=== PATIENT | female | born 1945 | race Caucasian/White ===

== ENCOUNTER 2020-08-30 11:47 | Inpatient (IN) ==
[2020-08-30] MEDS ORDERED: IOPAMIDOL 100 ML BOTTLE IV ONE (11:48)
[2020-08-30] MEDS ORDERED: 0.9 % SODIUM CHLORIDE 1,000 ML IV ONE (12:13)
[2020-08-30 12:47] LABS: POC Creatinine 0.7 mg/dL (0.6-1.2)
--- NOTE | 2020-08-30 12:55 | Emergency Department Note ---
Neuro HPI General Chief Complaint: Neuro Symptoms/Deficit Stated Complaint: slured speach Time Seen by Provider: 08/30/20 12:13 Source: family Mode of arrival: ambulatory Limitations: no limitations History of Present Illness HPI Narrative: Narrative: Patient is a 75-year-old female that comes into the emergency department today accompanied with her daughter. Apparently on , August 28, 2020 patient had got up at night to talk to the daughter and reports that she was not making sense with her words and had some slurred speech. Patient did not want to go to the emergency department, and went to bed that night. The next morning her speech had improved and she was reporting that she felt very anxious over the last couple of days, but has otherwise been feeling normal. She has not had any fevers, chills, vision changes, sore throat, rhinitis, nasal congestion, chest pain, palpitations, cough, shortness of breath, difficulty breathing, abdominal pain, nausea, vomiting, bleeding, bruising, melena, or hematochezia. Patient has had a slight headache at the center of her head that occurred for short period of time on evening, but has now resolved. She denies having any weakness, but reports that she feels slightly off balance when she ambulates. She denies any numbness or tingling. She has not had any falls or injuries. She has not had any recent illness. She denies having any past CVA, TIA,, neurological history, or cardiac history. She has not had any new medications. She reports she occasionally will take lorazepam for anxiety, and she is taking tamoxifen for left breast cancer. Related Data Home Medications Medication Instructions Recorded Confirmed tamoxifen 10 mg tablet 20 mg PO QDAY 08/28/20 08/30/20 acyclovir 400 mg PO DAILYP PRN 08/30/20 08/30/20 lorazepam 0.5 - 1 mg PO BID PRN 08/30/20 08/30/20 lorazepam 2.5 mg PO DAILY 08/30/20 08/30/20 Allergies Allergy/AdvReac Type Severity Reaction Status Date / Time exemestane Allergy Unknown Other Verified 08/28/20 18:58 ibuprofen [From Advil] Allergy Unknown Swelling Verified 08/28/20 18:58 of Lip/Tongue/Throat Penicillins Allergy Unknown Hives Verified 08/28/20 18:58 pseudoephedrine Allergy Unknown Swelling Verified 08/28/20 18:58 [From Sudafed] cefdinir [From Omnicef] Allergy Other Verified 08/28/20 18:58 chlorpheniramine Allergy Itching Verified 08/28/20 18:58 [From Tussionex] hydrocodone [From Tussionex] Allergy Itching Verified 08/28/20 18:58 doxycycline AdvReac Intermediate Abdominal Verified 08/28/20 18:58 Pain adhesive Tape Allergy Unknown Unknown Uncoded 08/28/20 18:58 Codeine Sulfate Allergy Unknown Nausea Uncoded 08/28/20 18:58 SULFA (SULFONAMIDES) Allergy Unknown Hives Uncoded 08/28/20 18:58 Review of Systems ROS ROS Narrative: Narrative: All systems ED: reviewed and negative except as stated. [facility] Narrative Patient History Narrative: Narrative: Medical/Surgical/Family History All Active Problems (Updated 08/30/20 @ 19:31 by ERA Barron) Cerebrovascular accident (Acute) Stress (Acute) Anxiety (Acute) Bee sting (Acute) Stress reaction (Acute) Acute dyspnea (Acute) Left shoulder pain (Acute) Breast cancer (Acute) Pain in both knees (Chronic) Degenerative joint disease of right knee (Chronic) Contusion of right orbit (Acute) Knee pain (Chronic) Right foot pain (Acute) Angioedema (Chronic) Encounter for Health Maintenance Examination in Adult (Chronic) History of colonoscopy (Chronic 01/26/10) History of breast surgery (Chronic) Anxiety (Chronic 11/01/12) Cyst (Chronic) Glucose intolerance (impaired glucose tolerance) (Chronic 11/01/12) Herpes simplex (Chronic) Pure hypercholesterolemia (Chronic 11/01/12) Osteoporosis screening (Chronic) Vitamin D deficiency (Chronic) Medical History Angioedema sec advil--avoid NSAIDS Anxiety (11/01/12) Anxiety Contusion of right orbit Cyst Previous derm review with Dr. Thompson. 2010--Lesion removed off the left lower lateral back which was a foreign body with a cyst. Degenerative joint disease of right knee 05/07/2015-[facility] Encounter for Health Maintenance Examination in Adult Glucose intolerance (impaired glucose tolerance) (11/01/12) Herpes simplex H/O herpes labialis--Acyclovir prn. Knee pain prob djd Osteoporosis screening 11/03/12 Bone Density--Spine T-score -0.7; Hip T-score -1.4 Pain in both knees Pure hypercholesterolemia (11/01/12) Right foot pain prob plantar fasciitis Stress Vitamin D deficiency Vitamin D deficiency 12/2009, corrected. Surgical History History of breast surgery Breast cyst excised a number of years ago. History of colonoscopy (01/26/10) Normal. Rescreen in 10 years Family History Grandmother(maternal) No problems noted. Mother Type 2 diabetes mellitus mother--diabetes at an older age Father Malignant neoplasm of lung father-Lung CA and probable asbestos Grandfather(paternal) Family history of malignant neoplasm had cancer of uncertain type Social History Smoking Status: Former smoker Alcohol Intake Frequency: does not drink Substance Use: does not use Exam Narrative Narrative: Narrative: General Limitations: no limitations General appearance: Present alert and in no apparent distress Head Head: Present atraumatic, normocephalic and normal inspection Eye Eye: Present normal appearance, PERRL, EOMI and visual medina intact; Absent scleral icterus, conjunctival injection, miosis (constriction) and mydriasis (dilation) ENT ENT: Present normal oropharynx, mucous membranes moist and TM's normal bila terally; Absent nasal congestion Neck Neck: Present normal inspection, full ROM and trachea midline; Absent tenderness, meningismus, lymphadenopathy and thyromegaly Chest Chest: Present symmetric chest wall rise Respiratory Respiratory: Present normal lung sounds bilaterally; Absent respiratory distress, rales/crackles, wheezes, stridor, accessory muscle use and prolonged expiratory phase Cardiovascular Cardiovascular: Present regular rate and normal rhythm; Absent systolic murmur and diastolic murmur Extremities Extremities: Present normal inspection, full ROM and normal capillary refill; Absent tenderness and cyanosis Back Back: Present normal inspection and full ROM; Absent spinous process tenderness Neurological Neurological: Present alert, oriented X3 and CN II-XII intact Expanded Neurological Patient oriented to: Present person, place and time Speech: Present fluid speech CRANIAL NERVES: EOM function (II, III, IV, ): Normal, facial sensation (V): Normal, facial palsy (VII): Normal, gag reflex (IX): Normal, spinal accessory function (XI): Normal and tongue deviation (XII): Normal CEREBELLAR FUNCTION: finger to nose: Normal and heel to dewey: Normal Motor strength - LUE: 5/5 Motor strength - RUE: 5/5 Motor strength - LLE: 5/5 Motor strength - RLE: 5/5 UPPER MOTOR NEURON EXAM: bryant neglect: Normal SENSORY EXAM UPPER EXTREMITY: Normal: light touch SENSORY EXAM LOWER EXTREMITY: Normal: light touch Coma Scale Eye Opening: Spontaneous Coma Scale Motor Response: Obeys Commands Coma Scale Verbal Response: Oriented Coma Scale Total: 15 Psychiatric Psychiatric: Present normal affect and normal mood Skin Skin: Present warm (WNL), dry and normal color Course Vital Signs Vital signs: Vital Signs Temperature 98 F 08/30/20 11:47 Pulse Rate 85 08/30/20 11:47 Respiratory Rate 16 08/30/20 11:47 Blood Pressure 150/73 08/30/20 11:47 Pulse Oximetry (%) 97 08/30/20 11:47 Temperature 98 F 08/30/20 11:47 Pulse Rate 72 08/30/20 18:36 Respiratory Rate 22 08/30/20 18:36 Blood Pressure 110/69 08/30/20 18:36 Pulse Oximetry (%) 97 08/30/20 18:36 MDM MDM Narrative Medical decision making narrative: Narrative: Patient is a 75-year-old female with onset of neurological changes approximately 40 hours ago, and apparently symptoms are resolving and almost completely resolved. Her neurological examination today is rather unremarkable. Proceed with a head CT without intravenous contrast that the preliminary report was read by direct radiology with impression of lacunar infarct basal ganglia on the left which is old. No evidence of acute intracranial abnormality. Given that patient had symptoms a follow-up was done with CTA head and neck today. The head and neck CTA did show additional finding in the left occipital lobe, and radiologist today had called me with results and recommended an MRI for further evaluation that could help with the diagnosis. The brain MRI was completed, and radiologist, Dr. Vásquez had called me with the results indicating that there is an acute nonhemorrhagic infarct that is moderate size in the left occipital/posterior and temporal/parietal lobe area. He also reports that there is another small acute infarct at the posterior left basal ganglia. Radiologist suggested that infarct is between 1 hour to 1 week old. Patient symptoms had started approximately 40 hours ago. Patient's NIH sore today of 2. Was able to consult with [facility] neurology, Dr. Lr today, and he recommends patient to have further work-up in regards to possible cardiac embolic stroke. Recommended echocardiogram, telemetry, and perhaps admitting patient for 24-hour monitoring. He recommended to check hemoglobin A1c, lipid panel, and start patient on Plavix and aspirin. Patient is out of the window for any other intervention at this time and according to neurology, and patient's symptoms have started to resolve. Was able to also discuss this case today with my supervising physician, Dr. Multani, and was able to consult with hospitalist, Dr. Tong. Dr. Tong will plan on admitting patient to [facility] for observation at [facility]. Patient did receive aspirin and Plavix in the emergency department today. She had also received a liter normal saline, and 1 mg of lorazepam prior to the MRI as she was anxious for the MRI. Lab Data Lab results reviewed: Yes I reviewed the patient's lab results. Result diagrams: 08/30/20 12:20 08/30/20 12:20 Labs: Lab Results 08/30/20 08/30/20 08/30/20 Range/Units 12:20 12:20 12:20 WBC 7.7 (4.5-11.0) K/mcL RBC 4.07 (4.00-5.20) M/mcL Hgb 12.9 (12.0-15.0) g/dL Hct 40.1 (36.0-48.0) % MCV 98.5 (80.0-100.0) fL MCH 31.7 (26.0-34.0) pg MCHC 32.2 (31.0-36.0) g/dL RDW 13.6 (11.5-14.5) % Plt Count 216 (140-440) K/mcL MPV 11.5 H (7.4-10.4) fL Neut % (Auto) 77.2 (38.0-78.0) % Lymph % (Auto) 14.0 L (15.0-49.0) % [place] % (Auto) 6.4 (1.0-12.0) % Eos % (Auto) 1.8 (0.0-7.0) % Baso % (Auto) 0.6 (0.0-2.0) % Lymph # (Auto) 1.08 L (1.50-4.80) K/mcL [place] # (Auto) 0.49 (0.10-0.90) K/mcL Eos # (Auto) 0.14 (0.00-0.70) K/mcL Baso # (Auto) 0.05 (0.00-0.20) K/mcL Absolute Neutrophils 5.94 (1.80-8.00) K/mcL Sodium 138 (133-145) mmol/L Potassium 4.1 (3.3-5.1) mmol/L Chloride 103 (96-108) mmol/L Carbon Dioxide 23 (22-30) mmol/L Anion Gap 12.0 (8.0-16.0) BUN 12 (8-23) mg/dL Creatinine 0.8 (0.6-1.1) mg/dL POC Creatinine 0.7 (0.6-1.2) mg/dL GFR Calculation 73 Glucose 161 H (70-105) mg/dL Calcium 8.8 (8.6-10.4) mg/dL Total Bilirubin 0.3 (0.1-1.0) mg/dL AST 19 (<32) U/L ALT 16 (<40) U/L Alkaline Phosphatase 69 (39-117) U/L Ammonia (11-51) umol/L Total Protein 6.4 (5.9-8.4) gm/dL Albumin 3.8 (3.2-5.2) gm/dL Globulin 2.6 (2.2-3.7) gm/dL Albumin/Globulin Ratio 1.5 (1.0-2.3) Urine Opiates Screen Ur Opiates Confirm Ur Oxycodone Screen Urine Methadone Screen Ur Methadone Confirm Ur Barbiturates Screen Ur Barbiturate Confirm Ur Phencyclidine Scrn Urine PCP Confirm Ur Amphetamines Screen U Amphetamines Confirm U Benzodiazepines Scrn U Benzodiazepine Confm Urine Cocaine Screen Urine Cocaine Confirm U Cannabinoids Confirm U Marijuana (THC) Screen Ethyl Alcohol (<0.010) gm/dL 08/30/20 08/30/20 08/30/20 Range/Units 12:20 13:01 13:20 WBC (4.5-11.0) K/mcL RBC (4.00-5.20) M/mcL Hgb (12.0-15.0) g/dL Hct (36.0-48.0) % MCV (80.0-100.0) fL MCH (26.0-34.0) pg MCHC (31.0-36.0) g/dL RDW (11.5-14.5) % Plt Count (140-440) K/mcL MPV (7.4-10.4) fL Neut % (Auto) (38.0-78.0) % Lymph % (Auto) (15.0-49.0) % [place] % (Auto) (1.0-12.0) % Eos % (Auto) (0.0-7.0) % Baso % (Auto) (0.0-2.0) % Lymph # (Auto) (1.50-4.80) K/mcL [place] # (Auto) (0.10-0.90) K/mcL Eos # (Auto) (0.00-0.70) K/mcL Baso # (Auto) (0.00-0.20) K/mcL Absolute Neutrophils (1.80-8.00) K/mcL Sodium (133-145) mmol/L Potassium (3.3-5.1) mmol/L Chloride (96-108) mmol/L Carbon Dioxide (22-30) mmol/L Anion Gap (8.0-16.0) BUN (8-23) mg/dL Creatinine (0.6-1.1) mg/dL POC Creatinine (0.6-1.2) mg/dL GFR Calculation Glucose (70-105) mg/dL Calcium (8.6-10.4) mg/dL Total Bilirubin (0.1-1.0) mg/dL AST (<32) U/L ALT (<40) U/L Alkaline Phosphatase (39-117) U/L Ammonia 38 (11-51) umol/L Total Protein (5.9-8.4) gm/dL Albumin (3.2-5.2) gm/dL Globulin (2.2-3.7) gm/dL Albumin/Globulin Ratio (1.0-2.3) Urine Opiates Screen None detected Ur Opiates Confirm TNP Ur Oxycodone Screen None detected Urine Methadone Screen None detected Ur Methadone Confirm TNP Ur Barbiturates Screen None detected Ur Barbiturate Confirm TNP Ur Phencyclidine Scrn None detected Urine PCP Confirm TNP Ur Amphetamines Screen None detected U Amphetamines Confirm TNP U Benzodiazepines Scrn None detected U Benzodiazepine Confm TNP Urine Cocaine Screen None detected Urine Cocaine Confirm TNP U Cannabinoids Confirm TNP U Marijuana (THC) Screen None detected Ethyl Alcohol < 0.010 (<0.010) gm/dL ED POC Tests ED POC Tests: AI - SARS Antigen Negative Radiology Data Radiology results reviewed: Yes I reviewed the patient's radiology results. Radiology results narrative: Ordering Physician: Ty iVvas Date of Service: 08/30/20 Procedure(s): MR head/brain stroke Accession Number(s): [id number] CLINICAL INFORMATION: Code stroke altered mental status COMPARISON: Head CT 08/30/2020 TECHNIQUE: Sagittal T1, axial T1-T2 FLAIR diffusion ADC images were obtained through the brain. FINDINGS: There are multiple (approximately 10) small cortical and subcortical acute lacunar infarcts in the left occipital lobe. They range up to 8 mm. Other acute lacunar infarcts noted in the left lateral hemisphere: 6 mm in the posterior left lentiform nucleus, 4-5 punctate lacunar infarcts in the right temporal white matter and a 6 mm lesion in the right perihippocampal region. All of these lesions exhibit restricted diffusion, are isointense on T1 and T2 without evidence of hemorrhage. Increased signal within the M1 M2 and M2 temporal branch of the left middle cerebral artery only represent acute thrombus. The ventricles, sulci, fissures and cisterns are symmetrically enlarged patible with mild underlying atrophy. Scattered chronic ischemic foci in the cerebral white matter are typical for age IMPRESSION: 1. Multiple acute cortical and subcortical lacunar infarcts within the left occipital lobe, the posterior lentiform nucleus with a few punctate foci scattered within the left temporal white matter including the parahippocampus. 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 It is suspected multiple emboli, originating from the left internal carotid artery, have scattered within the left occipital and temporal lobes via the left middle and posterior cerebral arteries. No evidence of hemorrhage 2. Mild atrophy and scattered chronic ischemic foci in the cerebral white matter typical for age. Interpreted and Authenticated by: Kuldip Salazar 08/30/20 EKG Data EKG #1: EKG attestation: Yes I reviewed and interpreted this EKG. and Yes There are no EKG findings of acute coronary syndrome EKG shows normal: sinus rhythm Rate: normal Discharge Plan Patient/Caregiver Discharge Instructions Pt seen by COMPRESSOR OPERATOR/PA only: No Clinical Impression: Cerebrovascular accident Patient Disposition: Xfer As Inpt ([facility]) Discharge Date/Time: 08/30/20 19:22
[2020-08-30 13:01] LABS: Basophils # (Auto) 0.05 K/mcL (0.00-0.20); Basophils % (Auto) 0.6 % (0.0-2.0); Eosinophils # (Auto) 0.14 K/mcL (0.00-0.70); Eosinophils % (Auto) 1.8 % (0.0-7.0); Hematocrit 40.1 % (36.0-48.0); Hemoglobin 12.9 g/dL (12.0-15.0); Lymphocytes # (Auto) 1.08 K/mcL (1.50-4.80); Mean Cell Volume 98.5 fL (80.0-100.0); Mean Corpuscular HGB Conc 32.2 g/dL (31.0-36.0); Mean Platelet Volume 11.5 fL (7.4-10.4); Monocytes # (Auto) 0.49 K/mcL (0.10-0.90); Monocytes % (Auto) 6.4 % (1.0-12.0); Neutrophils % (Auto) 77.2 % (38.0-78.0); Platelet Count 216 K/mcL (140-440); RBC 4.07 M/mcL (4.00-5.20); Red Cell Distribution Width 13.6 % (11.5-14.5); WBC 7.7 K/mcL (4.5-11.0)
[2020-08-30 13:24] LABS: ALT/SGPT 16 U/L (<40); AST/SGOT 19 U/L (<32); Albumin 3.8 gm/dL (3.2-5.2); Albumin/Globulin Ratio 1.5 (1.0-2.3); Alkaline Phosphatase 69 U/L (39-117); Bilirubin,Total 0.3 mg/dL (0.1-1.0); Blood Urea Nitrogen 12 mg/dL (8-23); Calcium 8.8 mg/dL (8.6-10.4); Carbon Dioxide 23 mmol/L (22-30); Chloride 103 mmol/L (96-108); Globulin 2.6 gm/dL (2.2-3.7); Glomerular Filtration Rate 73; Glucose 161 mg/dL (70-105)
[2020-08-30 13:25] LABS: Alcohol, Blood < 10.0 mg/dL; Alcohol,Blood < 0.010 gm/dL (<0.010)
[2020-08-30 13:44] LABS: Amphetamine Screen,Urine None detected; Barbiturate Screen,Urine None detected; Benzodiazepines Screen,Urine None detected; Cannabinoid Screen,Urine None detected; Cocaine Screen,Urine None detected; Opiate Screen,Urine None detected; Oxycodone, Urine Screen None detected; Phencyclidine Screen,Urine None detected
[2020-08-30] MEDS ORDERED: LORazepam 2 MG/ML VIAL IV ONE (13:45)
--- NOTE | 2020-08-30 16:07 | Internal Med History&Physical ---
HPI History of Present Illness Patient information: Note initiated : 08/30/20 at 4:06 pm Service Date, if different from initiated Date: [] Patient: Emily Castillo a 75 y/o F admitted on for slurred speech. Chief Complaint: [] History of present illness: Ms. Castillo is a 75 year old F Who presents to the ED with her daughter because of garbled speech. night daughter said her mom had garbled speech and was following. Mom refused to go to the emergency room at that time. Symptoms seem to improve the next 24 hours. However still mildly present in today they were still mildly present so her daughter brought her into the ED. Her daughter describes speech that would fall under expressive aphasia symptoms. She has no history of stroke. She had high blood pressure when she was seen at beginning of the year in the ED but she has not followed up on her blood pressure. Does not take blood pressure medications. Does have anxiety and says she has had more anxiety of the past couple months. Also note she is on tamoxifen for breast cancer. Work-up in the ED revealed stroke. ER notes he spoke with the radiologist left occipital parietal and temporal parietal as well as a small left basal ganglia. CTA head and neck were done and will have the results but it sounds like there was no thrombus noted but there was some stenosis per the physician licensed nursing assistant who did talk with neurology. Neurologist just recommended aspirin Plavix lipids panel with statin echocardiogram to rule out cardioembolic source. EKG in the ED is sinus at this time. Review of Systems: Positives as above. Denies headache/fever/chills/nausea/vomiting/chest or abdominal pain/cough/dyspnea/diarrhea. Remaining 10 point review of system reviewed negative PFSH PFSH All Active Problems Stress (Acute) Anxiety (Acute) Bee sting (Acute) Stress reaction (Acute) Acute dyspnea (Acute) Left shoulder pain (Acute) Breast cancer (Acute) Pain in both knees (Chronic) Degenerative joint disease of right knee (Chronic) Contusion of right orbit (Acute) Knee pain (Chronic) Right foot pain (Acute) Angioedema (Chronic) Encounter for Health Maintenance Examination in Adult (Chronic) History of colonoscopy (Chronic 01/26/10) History of breast surgery (Chronic) Anxiety (Chronic 11/01/12) Cyst (Chronic) Glucose intolerance (impaired glucose tolerance) (Chronic 11/01/12) Herpes simplex (Chronic) Pure hypercholesterolemia (Chronic 11/01/12) Osteoporosis screening (Chronic) Vitamin D deficiency (Chronic) Medical History Angioedema sec advil--avoid NSAIDS Anxiety (11/01/12) Anxiety Contusion of right orbit Cyst Previous derm review with Dr. Thompson. 2010--Lesion removed off the left lower lateral back which was a foreign body with a cyst. Degenerative joint disease of right knee 05/07/2015-[facility] Encounter for Health Maintenance Examination in Adult Glucose intolerance (impaired glucose tolerance) (11/01/12) Herpes simplex H/O herpes labialis--Acyclovir prn. Knee pain prob djd Osteoporosis screening 11/03/12 Bone Density--Spine T-score -0.7; Hip T-score -1.4 Pain in both knees Pure hypercholesterolemia (11/01/12) Right foot pain prob plantar fasciitis Stress Vitamin D deficiency Vitamin D deficiency 12/2009, corrected. Surgical History History of breast surgery Breast cyst excised a number of years ago. History of colonoscopy (01/26/10) Normal. Rescreen in 10 years Family History Grandmother(maternal) No problems noted. Mother Type 2 diabetes mellitus mother--diabetes at an older age Father Malignant neoplasm of lung father-Lung CA and probable asbestos Grandfather(paternal) Family history of malignant neoplasm had cancer of uncertain type Social History household members: alone housing: house lives independently: Yes marital status: occupational status: retired occupation: Teacher alcohol intake frequency: does not drink substance use type: does not use MEDS/ALLERGIES Home Medications and Allergies Home Medications Medication Instructions Recorded Confirmed Type tamoxifen 10 mg tablet 20 mg PO QDAY 08/28/20 08/30/20 History acyclovir 400 mg PO DAILYP PRN 08/30/20 08/30/20 History lorazepam 0.5 - 1 mg PO BID PRN 08/30/20 08/30/20 History lorazepam 2.5 mg PO DAILY 08/30/20 08/30/20 History Allergies Allergy/AdvReac Type Severity Reaction Status Date / Time exemestane Allergy Unknown Other Verified 08/28/20 18:58 ibuprofen [From Advil] Allergy Unknown Swelling Verified 08/28/20 18:58 of Lip/Tongue/Throat Penicillins Allergy Unknown Hives Verified 08/28/20 18:58 pseudoephedrine Allergy Unknown Swelling Verified 08/28/20 18:58 [From Sudafed] cefdinir [From Omnicef] Allergy Other Verified 08/28/20 18:58 chlorpheniramine Allergy Itching Verified 08/28/20 18:58 [From Tussionex] hydrocodone [From Tussionex] Allergy Itching Verified 08/28/20 18:58 doxycycline AdvReac Intermediate Abdominal Verified 08/28/20 18:58 Pain adhesive Tape Allergy Unknown Unknown Uncoded 08/28/20 18:58 Codeine Sulfate Allergy Unknown Nausea Uncoded 08/28/20 18:58 SULFA (SULFONAMIDES) Allergy Unknown Hives Uncoded 08/28/20 18:58 EXAM Constitutional Vitals: Temp Pulse Resp BP Pulse Ox 98 F 73 13 148/68 97 08/30/20 11:47 08/30/20 15:22 08/30/20 15:22 08/30/20 15:22 08/30/20 15:22 Exam: General: Alert, Awake, No acute Distress Eyes/N/T: EOMI, PERRL, Head/Neck: neck supple, normocephalic atraumatic CV: RRR, No murmurs, normal s1/s2 Pulm: Clear b/l, no wheezing/rhonchi/rales Abd: soft, nontender, +BS x4 Ext: no clubbing/cyanosis/edema Neuro: Alert, no focal deficits, moves all extremities, CN 2-12 grossly intact, symmetrical strength b/l upper/lower, sensations intact b/l upper/lower Skin: warm/dry DATA Data Completed and Pending Labs: Labs from last 24 hours 08/30/20 08/30/20 08/30/20 13:20 13:01 12:20 WBC RBC Hgb Hct MCV MCH MCHC RDW Plt Count MPV Neut % (Auto) Lymph % (Auto) [place] % (Auto) Eos % (Auto) Baso % (Auto) Lymph # (Auto) [place] # (Auto) Eos # (Auto) Baso # (Auto) Absolute Neutrophils Sodium Potassium Chloride Carbon Dioxide Anion Gap BUN Creatinine POC Creatinine GFR Calculation Glucose Calcium Total Bilirubin AST ALT Alkaline Phosphatase Ammonia 38 Total Protein Albumin Globulin Albumin/Globulin Ratio Urine Opiates Screen None detected Ur Opiates Confirm TNP Ur Oxycodone Screen None detected Urine Methadone Screen None detected Ur Methadone Confirm TNP Ur Barbiturates Screen None detected Ur Barbiturate Confirm TNP Ur Phencyclidine Scrn None detected Urine PCP Confirm TNP Ur Amphetamines Screen None detected U Amphetamines Confirm TNP U Benzodiazepines Scrn None detected U Benzodiazepine Confm TNP Urine Cocaine Screen None detected Urine Cocaine Confirm TNP U Cannabinoids Confirm TNP U Marijuana (THC) Screen None detected Ethyl Alcohol < 0.010 08/30/20 08/30/20 08/30/20 12:20 12:20 12:20 WBC 7.7 RBC 4.07 Hgb 12.9 Hct 40.1 MCV 98.5 MCH 31.7 MCHC 32.2 RDW 13.6 Plt Count 216 MPV 11.5 H Neut % (Auto) 77.2 Lymph % (Auto) 14.0 L [place] % (Auto) 6.4 Eos % (Auto) 1.8 Baso % (Auto) 0.6 Lymph # (Auto) 1.08 L [place] # (Auto) 0.49 Eos # (Auto) 0.14 Baso # (Auto) 0.05 Absolute Neutrophils 5.94 Sodium 138 Potassium 4.1 Chloride 103 Carbon Dioxide 23 Anion Gap 12.0 BUN 12 Creatinine 0.8 POC Creatinine 0.7 GFR Calculation 73 Glucose 161 H Calcium 8.8 Total Bilirubin 0.3 AST 19 ALT 16 Alkaline Phosphatase 69 Ammonia Total Protein 6.4 Albumin 3.8 Globulin 2.6 Albumin/Globulin Ratio 1.5 Urine Opiates Screen Ur Opiates Confirm Ur Oxycodone Screen Urine Methadone Screen Ur Methadone Confirm Ur Barbiturates Screen Ur Barbiturate Confirm Ur Phencyclidine Scrn Urine PCP Confirm Ur Amphetamines Screen U Amphetamines Confirm U Benzodiazepines Scrn U Benzodiazepine Confm Urine Cocaine Screen Urine Cocaine Confirm U Cannabinoids Confirm U Marijuana (THC) Screen Ethyl Alcohol A/P Narrative A/P Narrative: A: *acute CVA left hemisphere w/expressive aphasia: -of note pt on tamoxifen -Case discussed with stroke neurologist, medically and no need for transfer *HTN: possibly untreated htn based on pt history of elevations in past *Anxiety: *h/o Breast CA * P: -DAPT x21 days -statin -lipid panel -echo -tele -neurochecks -stop tamoxifen, f/u with oncology -pt/ot -ppx: lovenox full code Time Spent With Patient Time: Total time spent is greater than 50% in coordination of care (as documented) at patient's floor/unit and/or counseling patient:
[2020-08-30] MEDS ORDERED: CLOPIDOGREL 300 MG TABLET PO ONE (16:20)
--- NOTE | 2020-08-30 17:08 | XRay Report ---
CLINICAL INFORMATION: altered mental status COMPARISON: 08/08/2020 FINDINGS: Mild cardiomegaly is unchanged. Mediastinum and pulmonary vessels are normal. The lungs are clear. No effusions. Small eventration right diaphragm maintains long-term stability IMPRESSION: Mild stable cardiomegaly. Interpreted and Authenticated by: Kuldip Salazar 08/30/20
--- NOTE | 2020-08-30 17:24 | Cat Scan Report ---
CLINICAL INFORMATION: Acute mental status change COMPARISON: Head CT 10/24/2012 TECHNIQUE: 2.5 mm helical slices were obtained in the skull base to vertex. Following reconstruction, axial reformatted images were reviewed at bone and parenchymal windows. The exam was performed using radiation dose optimization techniques including, but not limited to, automated exposure control, adjustment of the mA and/or kV according to patient size and use of iterative reconstruction technique. FINDINGS: The ventricles, sulci, fissures, and cisterns are enlarged bowel mild atrophy. Slight asymmetric atrophy of the frontal temporal region. No change. There are no extra-axial fluid collection or mass appreciated. A 7 mm low-attenuation lesion in the posterior left lentiform nucleus is new from the previous study. It likely represents a focus of ischemia. There is no acute cerebral hemorrhage, mass effect or edema.. Bone windows show no osseous abnormality. IMPRESSION: Several low-attenuation lesion in the left lentiform nucleus not seen on the 2013 comparison study is likely in region of ischemia Mild atrophy with asymmetric atrophy of the frontal temporal region. No change Interpreted and Authenticated by: Kuldip Salazar 08/30/20
[2020-08-30] MEDS ORDERED: ASPIRIN 325 MG ENTERIC COATED TABLET PO ONE (17:52)
[2020-08-30] MEDS ORDERED: ASPIRIN 81 MG TAB.CHEW PO ONE (18:00)
--- NOTE | 2020-08-30 18:21 | Magnetic Resonance Report ---
CLINICAL INFORMATION: Code stroke altered mental status COMPARISON: Head CT 08/30/2020 TECHNIQUE: Sagittal T1, axial T1-T2 FLAIR diffusion ADC images were obtained through the brain. FINDINGS: There are multiple (approximately 10) small cortical and subcortical acute lacunar infarcts in the left occipital lobe. They range up to 8 mm. Other acute lacunar infarcts noted in the left lateral hemisphere: 6 mm in the posterior left lentiform nucleus, 4-5 punctate lacunar infarcts in the right temporal white matter and a 6 mm lesion in the right perihippocampal region. All of these lesions exhibit restricted diffusion, are isointense on T1 and T2 without evidence of hemorrhage. Increased signal within the M1 M2 and M2 temporal branch of the left middle cerebral artery only represent acute thrombus. The ventricles, sulci, fissures and cisterns are symmetrically enlarged patible with mild underlying atrophy. Scattered chronic ischemic foci in the cerebral white matter are typical for age IMPRESSION: 1. Multiple acute cortical and subcortical lacunar infarcts within the left occipital lobe, the posterior lentiform nucleus with a few punctate foci scattered within the left temporal white matter including the parahippocampus. 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 It is suspected multiple emboli, originating from the left internal carotid artery, have scattered within the left occipital and temporal lobes via the left middle and posterior cerebral arteries. No evidence of hemorrhage 2. Mild atrophy and scattered chronic ischemic foci in the cerebral white matter typical for age. Interpreted and Authenticated by: Kuldip Salazar 08/30/20
--- NOTE | 2020-08-30 18:55 | Cat Scan Report ---
CLINICAL INFORMATION: Code stroke COMPARISON: None. TECHNIQUE: 80 cc of Isovue-370 were injected intravenously, and using SmartPrep to maximize arterial opacification, 0.625 mm helical slices were obtained from the thoracic aortic arch through the [place] of [place]. Following reconstruction, 2.5mm sagittal, coronal and axial reformatted images were processed and reviewed at standard and bone algorithm/window. 3-D volume rendered, CPR and MIP images were processed using a [employer] work station.The exam was performed using radiation dose optimization techniques including, but not limited to, automated exposure control, adjustment of the mA and/or kV according to patient size and use of iterative reconstruction technique. FINDINGS: The thoracic aortic arch is normal diameter with diffuse intimal thickening. Bovine origin of the left common carotid arteries on the brachiocephalic artery is a normal variant. The brachiocephalic, both subclavian, both common, internal and external carotid arteries are widely patent. There is minimal fibrofatty calcific plaque in both carotid bifurcations, but no definite ulceration. The the right vertebral artery is dominant. The left vertebral artery is diminutive particularly the intracranial portion. No soft tissue abnormality IMPRESSION: Normal exam Interpreted and Authenticated by: Kuldip Salazar 08/30/20
--- NOTE | 2020-08-30 18:56 | EKG ---
Test Date: 2020-08-30 Pat Name: Emily Castillo Department: ED Room: Gender: Female [employer] Referee: : 1945 Requested By: Ty Vivas Order Number: [id number] Reading MD: Roel Ronquillo M.D. Measurements Intervals [place] Rate: 73 P: 27 MT: 167 QRS: 14 QRSD: 104 T: 20 QT: 382 QTc: 421 Interpretive Statements Sinus rhythm Since previous ECG of 08-08-2020, NSC NORMAL TRACING Electronically Signed On 08-30-2020 18:56:30 PDT by Roel Ronquillo M.D. /store/M0/[id number]
--- NOTE | 2020-08-30 19:07 | Cat Scan Report ---
CLINICAL INFORMATION: Code stroke COMPARISON: None. TECHNIQUE: 80 cc of Isovue-370 were injected intravenously , and using SmartPrep to maximize cerebral arterial opacification, 0.625 mm helical slices were obtained from the skull base through the cerebral vertex. Following reconstruction , sagittal, coronal and axial reformatted images were processed and reviewed at multiple windows and levels. 3D volume rendered and MIP images were acquired at a independent workstation. The exam was performed using radiation dose optimization techniques including, but not limited to, automated exposure control, adjustment of the mA and/or kV according to patient size and use of iterative reconstruction technique. FINDINGS: The intracranial right vertebral artery is normal. Intracranial left vertebral artery is diminutive. Basilar artery is also diminutive with diminutive P1 posterior cerebral artery segments. The P2 segments of the posterior vertebral arteries have embryonic origin from the supraclinoid ICAs. Intracranial internal carotid, both anterior and right middle cerebral arteries are well-opacified and normal in contour and caliber. There is a short segment thrombus within the proximal M1 segment of the left middle cerebral artery. In addition, the inferior division of the left M2 is attenuated and may be partially thrombosed. There is attenuation of the temporal and occipital branches to the left occipital lobe in the region of known acute infarct on MRI. There may be small amounts of her residual thrombus or embolus within these arteries. IMPRESSION: 1. Short segment occlusion M1 segment left middle cerebral artery. The inferior left M2 division is not opacified and presumably thrombosed. 2. Both posterior cerebral arteries (P2) have embryonic origins from the supraclinoid ICA. Distal occipital and temporal branches of the left posterior cerebral artery are attenuated compatible with minimal scattered thrombus or embolus. These branches supply the region of restricted diffusion on brain MRI. The patient may have a showering embolus originating from the left internal carotid artery Interpreted and Authenticated by: Kuldip Salazar 08/30/20
[2020-08-30] MEDS ORDERED: 0.9 % SODIUM CHLORIDE 1,000 ML IV SCH (19:17)
[2020-08-30] MEDS ORDERED: ACETAMINOPHEN 325 MG TABLET PO PRN (19:17)
[2020-08-30] MEDS ORDERED: SENNOSIDES 1 TABLET PO PRN (19:17)
[2020-08-30] MEDS ORDERED: POTASSIUM CHLORIDE 40 MEQ in DEXTROSE 5% IN WATER 500 ML IV PRN (19:17)
[2020-08-30] MEDS ORDERED: MAGNESIUM SULFATE 2 GM/50 ML BAG IV PRN (19:17)
[2020-08-30] MEDS ORDERED: ACYCLOVIR 400 MG TABLET PO PRN (19:17)
[2020-08-30] MEDS ORDERED: ONDANSETRON 4 MG/2 ML VIAL IV PRN (19:17)
[2020-08-30] MEDS ORDERED: POTASSIUM CHLORIDE 20 MEQ TABLET PO PRN ×2 (19:17)
[2020-08-30 19:45] LABS: Hemoglobin A1C 5.4 % Hgb (4.0-6.0)
[2020-08-30] MEDS ORDERED: LORazepam 0.5 MG TABLET PO PRN ×2 (20:10→20:15)
[2020-08-30] MEDS ORDERED: ATORVASTATIN 40 MG TABLET PO SCH (21:00)
[2020-08-30] MEDS: FAMOTIDINE 20 MG TABLET PO SCH ×2 (21:38→21:42)
[2020-08-30] MEDS: DOCUSATE SODIUM 100 MG CAPSULE PO SCH (21:38)
[2020-08-30] MEDS: 0.9 % SODIUM CHLORIDE 10 ML SYRINGE IV SCH (21:38)
[2020-08-31] MEDS: 0.9 % SODIUM CHLORIDE 10 ML SYRINGE IV SCH ×3 (05:33→20:52)
--- NOTE | 2020-08-31 07:54 | Internal Med Progress Note ---
SUBJECTIVE Subjective Patient information: Note initiated : 08/31/20 at 7:51 am Service Date, if different from initiated Date: [] Patient: Emily Castillo a 75 y/o F admitted on 08/30/20 for slurred speech. Chief Complaint: [] Interval history: History of present illness: Ms. Castillo is a 75 year old F Who presents to the ED with her daughter because of garbled speech. night daughter said her mom had garbled speech and was following. Mom refused to go to the emergency room at that time. Symptoms seem to improve the next 24 hours. However still mildly present in today they were still mildly present so her daughter brought her into the ED. Her daughter describes speech that would fall under expressive aphasia symptoms. She has no history of stroke. She had high blood pressure when she was seen at beginning of the year in the ED but she has not followed up on her blood pressure. Does not take blood pressure medications. Does have anxiety and says she has had more anxiety of the past couple months. Also note she is on tamoxifen for breast cancer. Work-up in the ED revealed stroke. ER notes he spoke with the radiologist left occipital parietal and temporal parietal as well as a small left basal ganglia. CTA head and neck were done and will have the results but it sounds like there was no thrombus per ED provider but some stenosis per the physician mortgage assistant who did talk with neurology. Neurologist just recommended aspirin Plavix lipids panel with statin echocardiogram to rule out cardioembolic source. EKG in the ED is sinus at this time. 08/31 Patient seems to be doing well. No overnight event or new complaints. Review of Systems: denies headache/fever/nausea/vomiting/chest or abdominal pain/cough/dyspn ea/diarrhea. Otherwise see above. Constitutional Vitals: Vital Signs Temp Pulse Resp BP Pulse Ox 97.8 F 66 15 145/59 95 08/31/20 04:05 08/31/20 04:12 08/31/20 04:12 08/31/20 04:05 08/31/20 04:12 Period Temp Pulse Resp BP Sys/Steward Pulse Ox Last 24 Hr 97.8 F-98.1 F 66-85 12-28 110-190/47-88 92-99 Intake and Output 08/30/20 08/31/20 08/31/20 21:59 05:59 13:59 Intake Total 1000 800 Output Total 125 200 100 Balance 875 600 -100 Weight 83.688 kg Intake & Output: Intake & Output 08/30/20 08/31/20 08/31/20 21:59 05:59 13:59 Intake Total 1000 800 Output Total 125 200 100 Balance 875 600 -100 Weight 83.688 kg Intake: IV 1000 Sodium Chloride 0.9% 1,000 ml @ 1000 Wide Open IV BOLUS ONE Rx#: [id number] Oral 800 Output: Void Amount 125 200 100 Other: Meal Dinner Percent of Meal Consumed 100% Feeding Ability Independent Urine Appearance Clear Clear Urine Color Bright Yellow Dark Yellow # Bowel Movements 0 Exam: General: Alert, Awake, No acute Distress Eyes/N/T: EOMI, Head/Neck: neck supple, CV: RRR, No murmurs, Pulm: Clear b/l, no wheezing/rhonchi/rales Abd: soft, nontender, +BS x4 Ext: no clubbing/cyanosis/edema Neuro: Alert, no focal deficits, moves all extremities, Skin: warm/dry OBJ DATA Labs CBC & Chem 7: 08/30/20 12:20 08/30/20 12:20 Labs: Abnormal Lab Results 08/30/20 08/30/20 08/30/20 12:20 12:20 12:20 MPV 11.5 H Lymph % (Auto) 14.0 L Lymph # (Auto) 1.08 L Glucose 161 H LDL Cholesterol, Calc 104 H Meds: Medications Acetaminophen (Acetaminophen 325 Mg Tablet) 650 mg PO Q6HP PRN PRN Reason: PAIN/FEVER > 101 Acyclovir (Acyclovir 400 Mg Tablet) 400 mg PO DAILYP PRN; Protocol PRN Reason: herpes Aspirin (Aspirin 81 Mg Tab.Chew) 81 mg PO DAILY [facility] Atorvastatin Calcium (Atorvastatin 40 Mg Tablet) 80 mg PO HS [facility] Last Admin: 08/30/20 21:38 Dose: Not Given Documented by: Clopidogrel Bisulfate (Clopidogrel 75 Mg Tablet) 75 mg PO DAILY [facility] Docusate Sodium (Docusate Sodium 100 Mg Capsule) 100 mg PO BID [facility] Last Admin: 08/30/20 21:38 Dose: 100 mg Documented by: Enoxaparin Sodium (Enoxaparin 40 Mg/0.4 Ml Syringe) 40 mg SQ DAILY [facility] Famotidine (Famotidine 20 Mg Tablet) 20 mg PO BID [facility] Last Admin: 08/30/20 21:42 Dose: Not Given Documented by: Potassium Chloride 40 meq/ (Dextrose) 520 mls @ 130 mls/hr IV UD PRN PRN Reason: Potassium < 3 Magnesium Sulfate (Magnesium Sulfate) 2 gm in 50 mls @ 50 mls/hr IV UD PRN PRN Reason: Magnesium </= 1.6 Lorazepam (Lorazepam 0.5 Mg Tablet) 2.5 mg PO DAILY [facility] Lorazepam (Lorazepam 0.5 Mg Tablet) 0 mg PO BIDP PRN PRN Reason: ANXIETY/SEDATION Ondansetron HCl (Ondansetron 4 Mg/2 Ml Vial) 4 mg IV Q4HP PRN PRN Reason: Nausea And Vomiting Potassium Chloride (Potassium Chloride 20 Meq Tablet) 40 meq PO UD PRN PRN Reason: Potssium is 3-3.5 Potassium Chloride (Potassium Chloride 20 Meq Tablet) 40 meq PO UD PRN PRN Reason: Potassium < 3 Senna (Sennosides 1 Tablet) 2 tab PO DAILYP PRN PRN Reason: Constipation Sodium Chloride (0.9 % Sodium Chloride 10 Ml Syringe) 10 ml IV Q8 [facility] Last Admin: 08/31/20 05:33 Dose: Not Given Documented by: A/P Narrative A/P Narrative: A: *acute CVA left hemisphere w/expressive aphasia: -of note pt on tamoxifen -Case discussed with stroke neurologist, medically and no need for transfer -I was originally told there was no thrombosis on imaging, however, upon being able to finally read the radiology report does mention a short segment M1 occlusion left middle cerebral artery and left M2. I did discuss these findings with Dr. Koch who felt that it was likely chronic given the fact that her symptoms have essentially resolved and her blood pressure although originally m ildly hypertensive is come down on its own. He recommended dual antiplatelets as we are doing and to follow-up with him in the office. *Anxiety: *h/o Breast CA P: -DAPT and f/u with Dr. Koch -statin -echo -tele -neurochecks -f/u with Dr. Kohc -stop tamoxifen, f/u with oncology -pt/ot -ppx: lovenox full code Time Spent With Patient Time: Total time spent is greater than 50% in coordination of care (as documented) at patient's floor/unit and/or counseling patient: QUALITY Stroke Onset of Symptoms Date: 08/28/20 Symptom Onset Unknown: Yes VTE Deep Vein Thrombosis/Pulmonary Embolism Present on Admission: No
[2020-08-31] MEDS ORDERED: CLOPIDOGREL 75 MG TABLET PO SCH (09:00)
[2020-08-31] MEDS ORDERED: ENOXAPARIN 40 MG/0.4 ML SYRINGE SQ SCH (09:00)
[2020-08-31] MEDS: DOCUSATE SODIUM 100 MG CAPSULE PO SCH ×2 (10:52→20:52)
[2020-08-31] MEDS: LORazepam 0.5 MG TABLET PO SCH ×2 (10:52→14:24)
[2020-08-31] MEDS: FAMOTIDINE 20 MG TABLET PO SCH ×2 (10:52→20:53)
[2020-08-31] MEDS: ASPIRIN 81 MG TAB.CHEW PO SCH ×2 (10:52→14:23)
--- NOTE | 2020-08-31 11:33 | Discharge Summary ---
Discharge Provider Provider Patient information: Note initiated : 08/31/20 at 11:32 am Service Date, if different from initiated Date: [] Patient: Emily Castillo a 75 y/o F admitted on 08/30/20 for slurred speech. Chief Complaint: [] Date of admission: 08/30/20 19:13 Discharge date: 09/01/20 Primary care physician: Sandra Lerma Consults: 08/30/20 Consult to Physician [CONS] Stat Comment: Consulting Provider: Ras Tong Reason For Exam: Physician to Consult Discharge Meds Discharge Medications Home Medications acyclovir 400 mg PO DAILYP PRN 08/30/20 [History Confirmed 08/30/20 Last Taken Unknown] lorazepam 0.5 - 1 mg PO BID PRN 08/30/20 [History Confirmed 08/31/20 Last Taken 08/29/20 21:00] aspirin 81 mg PO DAILY #30 tab 08/31/20 [Rx Last Taken Unknown] atorvastatin [Lipitor] 40 mg PO QHS #30 tab 08/31/20 [Rx Last Taken Unknown] cholecalciferol (vitamin D3) [Vitamin D3] 50 mcg PO BID 08/31/20 [History Confirmed 08/31/20 Last Taken 08/29/20 21:00] clopidogrel 75 mg PO DAILY #30 tab 08/31/20 [Rx Last Taken Unknown] docusate sodium 100 mg PO BID 08/31/20 [History Confirmed 08/31/20 Last Taken 08/29/20 21:00] COURSE Hospital Course Hospital course: Interval history: History of present illness: Ms. Castillo is a 75 year old F Who presents to the ED with her daughter because of garbled speech. night daughter said her mom had garbled speech and was following. Mom refused to go to the emergency room at that time. Symptoms seem to improve the next 24 hours. However still mildly present in today they were still mildly present so her daughter brought her into the ED. Her daughter describes speech that would fall under expressive aphasia symptoms. She has no history of stroke. She had high blood pressure when she was seen at beginning of the year in the ED but she has not followed up on her blood pressure. Does not take blood pressure medications. Does have anxiety and says she has had more anxiety of the past couple months. Also note she is on tamoxifen for breast cancer. Work-up in the ED revealed stroke. ER notes he spoke with the radiologist left occipital parietal and temporal parietal as well as a small left basal ganglia. CTA head and neck were done and will have the results but it sounds like there was no thrombus per ED provider but some stenosis per the physician assistant public defender who did talk with neurology. Neurologist just recommended aspirin Plavix lipids panel with statin echocardiogram to rule out cardioembolic source. EKG in the ED is sinus at this time. 08/31 Patient seems to be doing well. No overnight event or new complaints. 09/01 No overnight or new complaints. Patient stable *acute CVA left hemisphere w/expressive aphasia: -of note pt on tamoxifen -Case discussed with stroke neurologist, medically and no need for transfer -I was originally told there was no thrombosis on imaging, however, upon being able to finally read the radiology report does mention a short segment M1 occlusion left middle cerebral artery and left M2. I did discuss these findings with Dr. Koch who felt that it was likely chronic given the fact that her symptoms have essentially resolved and her blood pressure although originally mildly hypertensive is come down on its own. He recommended dual antiplatelets as we are doing and to follow-up with him in the office. *Anxiety: *h/o Breast CA Discharge diagnosis: Hemispheric CVA left Secondary discharge diagnosis: Anxiety history of breast cancer Time Spent with Patient Time attestation: Total time spent providing and/or coordinating discharge services: Time spent: Greater than 30 minutes EXAM Constitutional Vitals: Temp Pulse Resp BP Pulse Ox 97.9 F 65 13 136/69 97 08/31/20 08:27 08/31/20 08:27 08/31/20 08:27 08/31/20 08:27 08/31/20 08:27 Discharge Data Data Completed and Pending Labs on day of discharge: Labs from last 24 hours 08/30/20 08/30/20 08/30/20 13:20 13:01 12:20 WBC RBC Hgb Hct MCV MCH MCHC RDW Plt Count MPV Neut % (Auto) Lymph % (Auto) Mccreary % (Auto) Eos % (Auto) Baso % (Auto) Lymph # (Auto) Mccreary # (Auto) Eos # (Auto) Baso # (Auto) Absolute Neutrophils Sodium Potassium Chloride Carbon Dioxide Anion Gap BUN Creatinine POC Creatinine GFR Calculation Glucose Hemoglobin A1c 5.4 Estim Average Glucose 108 Calcium Total Bilirubin AST ALT Alkaline Phosphatase Ammonia 38 Total Protein Albumin Globulin Albumin/Globulin Ratio Triglycerides 115 Cholesterol 179 LDL Cholesterol, Calc 104 H Non-HDL Cholesterol 126 HDL Cholesterol 53 Urine Opiates Screen None detected Ur Opiates Confirm TNP Ur Oxycodone Screen None detected Urine Methadone Screen None detected Ur Methadone Confirm TNP Ur Barbiturates Screen None detected Ur Barbiturate Confirm TNP Ur Phencyclidine Scrn None detected Urine PCP Confirm TNP Ur Amphetamines Screen None detected U Amphetamines Confirm TNP U Benzodiazepines Scrn None detected U Benzodiazepine Confm TNP Urine Cocaine Screen None detected Urine Cocaine Confirm TNP U Cannabinoids Confirm TNP U Marijuana (THC) Screen None detected Ethyl Alcohol 08/30/20 08/30/20 08/30/20 12:20 12:20 12:20 WBC RBC Hgb Hct MCV MCH MCHC RDW Plt Count MPV Neut % (Auto) Lymph % (Auto) Mccreary % (Auto) Eos % (Auto) Baso % (Auto) Lymph # (Auto) Mccreary # (Auto) Eos # (Auto) Baso # (Auto) Absolute Neutrophils Sodium 138 Potassium 4.1 Chloride 103 Carbon Dioxide 23 Anion Gap 12.0 BUN 12 Creatinine 0.8 POC Creatinine 0.7 GFR Calculation 73 Glucose 161 H Hemoglobin A1c Estim Average Glucose Calcium 8.8 Total Bilirubin 0.3 AST 19 ALT 16 Alkaline Phosphatase 69 Ammonia Total Protein 6.4 Albumin 3.8 Globulin 2.6 Albumin/Globulin Ratio 1.5 Triglycerides Cholesterol LDL Cholesterol, Calc Non-HDL Cholesterol HDL Cholesterol Urine Opiates Screen Ur Opiates Confirm Ur Oxycodone Screen Urine Methadone Screen Ur Methadone Confirm Ur Barbiturates Screen Ur Barbiturate Confirm Ur Phencyclidine Scrn Urine PCP Confirm Ur Amphetamines Screen U Amphetamines Confirm U Benzodiazepines Scrn U Benzodiazepine Confm Urine Cocaine Screen Urine Cocaine Confirm U Cannabinoids Confirm U Marijuana (THC) Screen Ethyl Alcohol < 0.010 08/30/20 12:20 WBC 7.7 RBC 4.07 Hgb 12.9 Hct 40.1 MCV 98.5 MCH 31.7 MCHC 32.2 RDW 13.6 Plt Count 216 MPV 11.5 H Neut % (Auto) 77.2 Lymph % (Auto) 14.0 L Mccreary % (Auto) 6.4 Eos % (Auto) 1.8 Baso % (Auto) 0.6 Lymph # (Auto) 1.08 L Mccreary # (Auto) 0.49 Eos # (Auto) 0.14 Baso # (Auto) 0.05 Absolute Neutrophils 5.94 Sodium Potassium Chloride Carbon Dioxide Anion Gap BUN Creatinine POC Creatinine GFR Calculation Glucose Hemoglobin A1c Estim Average Glucose Calcium Total Bilirubin AST ALT Alkaline Phosphatase Ammonia Total Protein Albumin Globulin Albumin/Globulin Ratio Triglycerides Cholesterol LDL Cholesterol, Calc Non-HDL Cholesterol HDL Cholesterol Urine Opiates Screen Ur Opiates Confirm Ur Oxycodone Screen Urine Methadone Screen Ur Methadone Confirm Ur Barbiturates Screen Ur Barbiturate Confirm Ur Phencyclidine Scrn Urine PCP Confirm Ur Amphetamines Screen U Amphetamines Confirm U Benzodiazepines Scrn U Benzodiazepine Confm Urine Cocaine Screen Urine Cocaine Confirm U Cannabinoids Confirm U Marijuana (THC) Screen Ethyl Alcohol Discharge Plan Patient/Caregiver Discharge Instructions Activity: increase activity as tolerated Diet: Cardiac Activity Restrictions/Additional Instructions: Continue aspirin/Plavix until seen by Dr. Koch. Follow-up with oncology, tamoxifen stopped for stroke Prescriptions: New aspirin 81 mg Tablet,Chewable 81 mg PO DAILY Qty: 30 RF: 0 clopidogrel 75 mg Tablet 75 mg PO DAILY Qty: 30 RF: 0 atorvastatin [Lipitor] 40 mg tablet 40 mg PO QHS Qty: 30 RF: 0 Continued acyclovir 400 mg tablet 400 mg PO DAILYP PRN (Reason: herpes) RF: 0 lorazepam 1 mg tablet 0.5 - 1 mg PO BID PRN (Reason: anxiety) RF: 0 docusate sodium 100 mg Tablet 100 mg PO BID RF: 0 cholecalciferol (vitamin D3) [Vitamin D3] 50 mcg (2,000 unit) Tablet 50 mcg PO BID RF: 0 Discontinued tamoxifen 10 mg tablet 20 mg PO QDAY RF: 0 Follow Up Plan Follow up with: Kuldip Koch MD [Physician] - Sandra Lerma MD [Primary Care Provider] - Patient Disposition: Home, Self-Care Prognosis: Fair Overall status at discharge: patient is progressing back to baseline Discharge Orders: Discharge Order (Routine); Ordered 09/01/20 Ordered By: Ras Tong [facility] VTE Deep Vein Thrombosis/Pulmonary Embolism Present on Admission: No
[2020-08-31] MEDS ORDERED: ACETAMINOPHEN 325 MG TABLET PO PRN (17:46)
[2020-08-31] MEDS ORDERED: ACYCLOVIR 400 MG TABLET PO PRN (17:46)
[2020-08-31] MEDS ORDERED: LORazepam 0.5 MG TABLET PO PRN (17:46)
[2020-08-31] MEDS ORDERED: MAGNESIUM SULFATE 2 GM/50 ML BAG IV PRN (17:46)
[2020-08-31] MEDS ORDERED: ONDANSETRON 4 MG/2 ML VIAL IV PRN (17:46)
[2020-08-31] MEDS ORDERED: POTASSIUM CHLORIDE 40 MEQ in DEXTROSE 5% IN WATER 500 ML IV PRN (17:46)
[2020-08-31] MEDS ORDERED: SENNOSIDES 1 TABLET PO PRN (17:46)
[2020-08-31] MEDS ORDERED: POTASSIUM CHLORIDE 20 MEQ TABLET PO PRN ×2 (17:46)
[2020-08-31] MEDS ORDERED: ATORVASTATIN 40 MG TABLET PO SCH (21:00)
[2020-09-01] MEDS: 0.9 % SODIUM CHLORIDE 10 ML SYRINGE IV SCH (05:44)
[2020-09-01] MEDS: LORazepam 0.5 MG TABLET PO SCH ×2 (08:44→09:57)
[2020-09-01] MEDS: DOCUSATE SODIUM 100 MG CAPSULE PO SCH (08:44)
[2020-09-01] MEDS: FAMOTIDINE 20 MG TABLET PO SCH (08:54)
[2020-09-01] MEDS ORDERED: ENOXAPARIN 40 MG/0.4 ML SYRINGE SQ SCH (09:00)
[2020-09-01] MEDS ORDERED: ASPIRIN 81 MG TAB.CHEW PO SCH (09:00)
[2020-09-01] MEDS ORDERED: CLOPIDOGREL 75 MG TABLET PO SCH (09:00)
== END 2020-09-01 12:19 | disposition home or self-care (01) | DRG 66 ==
LOC: ED 11:47 → ICU 19:13
PROVIDERS: ADMIT Internal Medicine; ATTEND Internal Medicine